=== PATIENT | female | born 1990 | race African-American/Black ===

== ENCOUNTER 2024-06-07 17:07 | Emergency (ER) | payer SELFPAY ==
[2024-06-07 17:36] VITALS: BP 127/86
--- NOTE | 2024-06-07 19:31 | ED.SKININJ ---
HPI-Injury
General
Chief Complaint: Bite
Source: patient
Time Seen by Provider: 06/07/24 18:54
History of Present Illness-Injury
Initial Injury comments:
34-year-old female presenting emergency department for evaluation after she was bit on the right wrist by a family dog. Dog is up-to-date on vaccines. Patient is unsure of her last tetanus. She is right-hand dominant. No other injury sustained
Past History
Past History
ED Past Medical History: None
ED Past Surgical History: None
Social History
Tobacco: Non-smoker
Alcohol: None
Drug: None
Personal: Single
Living: with family
Review of Systems
Review of Systems
All Other Systems: ROS reviewed and negative except as documented in HPI and ROS
Phy Exam
Physical Exam
Physical Exam:
GENERAL: Alert , in no apparent distress
EYE: conjunctiva clear
Head: Normocephalic atraumatic
NECK: Supple,
ENT: mmm.
LUNGS: no acute respiratory distress
NEUROLOGICAL: Alert and oriented
SKIN: Warm and dry, 4 superficial abrasions over the brachial radialis aspect of the distal right forearm. Small scratches noted as well. Minimal edema
MUSCULOSKELETAL: well perfused.
PSYCH: Normal and appropriate interaction.
Scores
Heart Failure Risk
Heart Failure Risk Score: Not Applicable
Heart Score for Chest Pain Patients
STEMI patient?: Not applicable
Withdrawal Assessment of Alcohol
Withdrawal Assessment Completed?: Not applicable
Course
Orders/Labs/Results
Orders:
Orders
06/07/24 17:09
EKG [Electrocardiogram (*1)] Urgent
Reason for Study: Chest Pain
06/07/24 19:31
Sling Right-Treatment ONCE
Amoxicillin 875 mg/Clav 125 mg [Augmentin 875 mg/125 mg] 1 tablet PO NOW STA
Tetanus/Diphth/Acelpertussis [Adacel] 0.5 ml IM .ONCE ONE
06/07/24 19:44
Tetanus and Diphtheria Tox/Pf [Tenivac] 0.5 ml .ROUTE .STK-MED ONE
Vital Signs
Initial and Last Documented VS:
Initial Vital Signs
Temp Pulse Resp BP Pulse Ox
98.2 F 75 18 127/86 100
06/07/24 17:36 06/07/24 17:36 06/07/24 17:36 06/07/24 17:36 06/07/24 17:36
Last Documented Vital Signs
Temp Pulse Resp BP Pulse Ox
98.2 F 75 20 124/68 98
06/07/24 17:36 06/07/24 19:57 06/07/24 19:57 06/07/24 19:57 06/07/24 19:57
MDM/Problems Addressed
Differential Diagnosis Includes:
Dog bite with abrasions, no concern for tendon or nerve injury, given this just occurred minimal concern for any active cellulitis or current infection
MDM/Problems Addressed:
34-year-old female presenting to the ER for evaluation after accidentally being bit on the right wrist by family dog. Vaccines are all up-to-date. Will update patient's tetanus. Short-term course of Augmentin provided. Patient advised on wound
care and return cautions . Stable for discharge home
*Pulse Oximetry
Patient hypoxic: no
*Critical Care Note
Total Time (30-74mins, 75-104mins- exclusive of procedures): Not Applicable
ED Attending Note
-
Portions of this chart may have been created with voice recognition software.� Occasional wrong word or��sound alike� substitutions may have occurred due to the inherent limitations of voice recognition software.
Discharge Plan
Departure
Patient Disposition: Home (Routine Discharge)
Date of Disposition: 06/07/24
Time of Disposition: 19:31
Patient with high blood pressure during this ER visit?: No
Discharge Problem:
Dog bite, Abrasion of right wrist
Instructions: Animal Bites (DC)
Prescriptions:
New
amoxicillin-pot clavulanate 875-125 mg tablet
1 tab PO BID Qty: 9 0RF
Referrals:
NONE,* [Family Provider] -
Interventions
Interventions:
*Risk Screen - Suicide Last Done: 06/07/24 17:36
*General Assessment Last Done: 06/07/24 17:36
*Neglect/Abuse Screening Last Done: 06/07/24 17:36
*ED COVID-19 Vaccine History Last Done: 06/07/24 19:40
*Nursing Disposition Last Done: 06/07/24 19:57
ED-Skin Assessment Last Done: 06/07/24 19:40
Discharge Date and Time
Discharge Date/Time: 06/07/24 19:58
Print Language: SYRIAC
[2024-06-07] MEDS: AUGMENTIN 875 MG/125 MG 1 TABLET PO (19:38)
[2024-06-07] MEDS: ADACEL 0.5 ML IM (19:45)
[2024-06-07 19:57] VITALS: BP 124/68
== END 2024-06-07 19:58 | disposition home or self-care (01) ==
LOC: EMR 17:07
PROVIDERS: EMERGENCY PHYSICIAN Emergency Medicine
DX: S60.811A Abrasion of right wrist, initial encounter (principal); W54.0XXA Bitten by dog, initial encounter; Z23 Encounter for immunization
CPT/HCPCS: 99282; 90471; 90714; 90715